=== PATIENT | male | born 1985 | race Two or more races ===

== ENCOUNTER 2022-08-31 10:40 | Inpatient (IN) | payer SELFPAY ==
--- NOTE | 2022-08-31 11:24 | RAD REPORT ---
EXAM DESCRIPTION: RAD - Chest Single View - 08/31/2022 11:18 am CLINICAL HISTORY: pre op COMPARISON: No comparisons FINDINGS: Lines: None. Lungs: No evidence of edema or pneumonia. Pleural: No significant pleural effusions or pneumothorax. Cardiac: The heart size is within normal limits. Mediastinum: Within normal limits. Bones: No acute fractures. Other: None IMPRESSION: No acute cardiopulmonary disease.
[2022-08-31] MEDS ORDERED: NA CHLORIDE 0.9% 100 ML ONE (11:32)
[2022-08-31] MEDS ORDERED: MORPHINE 4 MG/ML SYR ONE ×2 (11:32→13:35)
[2022-08-31] MEDS ORDERED: PIPERACIL/TAZO 3.375 GM VIAL IV ONE (11:32)
[2022-08-31] MEDS ORDERED: NA CHLORIDE 0.9% 1,000 ML ONE (11:32)
[2022-08-31 11:35] LABS: Absolute Lymphocytes (CBC) 1.4 K/uL (0.7-4.9); Hematocrit 36.8 % (39.6-49.0); Lymphocytes % 10.2 % (15.3-44.8); MCV 85.4 fL (80-100); MPV 7.2 fL (7.6-11.3); RBC Red Blood Cell Count 4.31 M/uL (4.33-5.43)
[2022-08-31 11:42] LABS: Protime INR 1.05
[2022-08-31 11:54] LABS: Albumin 3.4 g/dL (3.4-5.0); Bilirubin Total 0.3 mg/dL (0.2-1.0); Potassium 3.6 mEq/L (3.5-5.1); Protein, Total 7.9 g/dL (6.4-8.2)
[2022-08-31 12:33] LABS: Specific Gravity 1.015 (1.005-1.030); Urine Bacteria None Seen /HPF (<20); Urine Bilirubin NEGATIVE (Negative); Urine Blood Negative (Negative); Urine Clarity Clear (Clear); Urine Color Light-Yellow (Yellow); Urine Glucose 1+ (Negative); Urine Mucus Slight /HPF (None Seen); Urine Protein TRACE (Negative); Urine RBC <5 /HPF (None Seen); Urine Urobilinogen Normal (Normal)
--- NOTE | 2022-08-31 12:40 | RAD REPORT ---
EXAM DESCRIPTION: CTAbdomen Pelvis W Contrast - 08/31/2022 12:25 pm CLINICAL HISTORY: scrotal abscess COMPARISON: No comparisons TECHNIQUE: CT of the abdomen and pelvis was performed. All CT scans are performed using dose optimization technique as appropriate and may include automated exposure control or mA/KV adjustment according to patient size. FINDINGS: Lower chest: No acute abnormality. Liver: No acute abnormality or suspicious lesions. Biliary: No biliary ductal dilatation. Stomach: No significant focal abnormality. Duodenum: No significant focal abnormality. Pancreas: No significant abnormality. Spleen: No significant abnormality. Adrenal: No suspicious lesions. Kidney/ureter: No hydronephrosis. No renal calculi. Too small to characterize and/or benign appearing renal lesions are noted. Retroperitoneum: No retroperitoneal adenopathy. Vascular: No aneurysm. Bowel: Complex multiloculated perianal abscess identified measuring at least 5.3 x 2.9 cm. There is e xtensive inflammatory changes around the anus. The dominant fluid collection is present from about th e 11:00 to 3:00 position. No extension into the ischiorectal fossa. Normal appendix.. Peritoneum: No ascites or free air. Bladder: Grossly unremarkable. Reproductive: No adnexal masses. Bones: No acute fracture. Other: n/a IMPRESSION: Complex perianal fluid collection is presumably an abscess. Suggest surgical consultatio n. Due to the extent of inflammatory changes and soft tissue, MRI would be needed if better anatomic delineation needed.
--- NOTE | 2022-08-31 13:07 | EDPHYS ---
Physician Documentation [facility] Name: Wilder Celeste Age: 36 yrs Sex: Male : 1985 Arrival Date: 08/31/2022 Time: 10:40 Bed 13 Private MD: TANA Physician Brando Stephenson HPI: 08/31 11:41 This 36 yrs old Male presents to ER via Ambulatory with complaints of Abscess. snw 11:41 the patient presents with a swollen area of the marshall anal. Description: The affected snw area is small, poorly defined, swollen, exquisitely tender. Onset: The symptoms/episode began/occurred 1 week(s) ago, and became worse 2 day(s) ago, and became persistent. Associated signs and symptoms:. The patient has experienced a previous episode, 2019. The patient has not recently seen a physician. Historical: - Allergies: 10:57 No Known Allergies; ld1 - Home Meds: 10:57 None [Active]; ld1 - PMHx: 10:57 None; ld1 - PSHx: 10:57 None; ld1 - Immunization history:: Adult Immunizations up to date, Client reports receiving the 2nd dose of the Covid vaccine. - Social history:: Smoking status: Patient reports the use of cigarette tobacco products, smokes one-half pack cigarettes per day, Patient/guardian denies using alcohol. ROS: 11:41 Constitutional: Negative for fever, chills, and weight loss, Eyes: Negative for injury, snw pain, redness, and discharge, ENT: Negative for injury, pain, and discharge, Neck: Negative for injury, pain, and swelling, Cardiovascular: Negative for chest pain, palpitations, and edema, Respiratory: Negative for shortness of breath, cough, wheezing, and pleuritic chest pain, Abdomen/GI: Negative for abdominal pain, nausea, vomiting, diarrhea, and constipation, marshall anal pain and swelling Back: Negative for injury and pain, : Negative for injury, bleeding, discharge, and swelling, MS/Extremity: Negative for injury and deformity, Skin: Negative for injury, rash, and discoloration, Neuro: Negative for headache, weakness, numbness, tingling, and seizure, Psych: Negative for depression, anxiety, suicide ideation, homicidal ideation, and hallucinations. Exam: 11:40 Constitutional: This is a well developed, well nourished patient who is awake, alert, snw and in no acute distress. Head/Face: Normocephalic, atraumatic. Eyes: Pupils equal round and reactive to light, extra-ocular motions intact. Lids and lashes normal. Conjunctiva and sclera are non-icteric and not injected. Cornea within normal limits. Periorbital areas with no swelling, redness, or edema. ENT: Nares patent. No nasal discharge, no septal abnormalities noted. Tympanic membranes are normal and external auditory canals are clear. Oropharynx with no redness, swelling, or masses, exudates, or evidence of obstruction, uvula midline. Mucous membranes moist. Neck: Trachea midline, no thyromegaly or masses palpated, and no cervical lymphadenopathy. Supple, full range of motion without nuchal rigidity, or vertebral point tenderness. No Meningismus. Chest/axilla: Normal chest wall appearance and motion. Nontender with no deformity. No lesions are appreciated. Cardiovascular: Tachycardic rate and rhythm with a normal S1 and S2. No gallops, murmurs, or rubs. Normal PMI, no JVD. No pulse deficits. Respiratory: Lungs have equal breath sounds bilaterally, clear to auscultation and percussion. No rales, rhonchi or wheezes noted. No increased work of breathing, no retractions or nasal flaring. Abdomen/GI: Soft, non-tender, with normal bowel sounds. No distension or tympany. No guarding or rebound. No evidence of tenderness throughout. Severe right greater than left perirectal pain, pt unable to tolerate digital exam Back: No spinal tenderness. No costovertebral tenderness. Full range of motion. Male : Normal genitalia with no discharge or lesions. Skin: Warm, dry with normal turgor. Normal color with no rashes, no lesions, and no evidence of cellulitis. MS/ Extremity: Pulses equal, no cyanosis. Neurovascular intact. Full, normal range of motion. Neuro: Awake and alert, GCS 15, oriented to person, place, time, and situation. Cranial nerves II-XII grossly intact. Motor strength 5/5 in all extremities. Sensory grossly intact. Cerebellar exam normal. Normal gait. Vital Signs: 10:56 BP 117 / 70; Pulse 122; Resp 20; Temp 98.4(TE); Pulse Ox 99% on R/A; Weight 120.2 kg; ld1 Height 5 ft. 9 in. ; Pain 10/10; 13:20 BP 126 / 76; Pulse 88; Resp 18; Pulse Ox 97% on R/A; ph 10:56 Body Mass Index 39.13 (120.20 kg, 175.26 cm) ld1 10:56 Pain Scale: Adult ld1 MDM: 10:59 Patient medically screened. [email or web address] 11:55 Differential diagnosis: abscess, cellulitis. Data reviewed: vital signs, nurses notes. 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 11:57 Management of patient was discussed with the following: Hotel Housekeeper: Dr. Ibanez, will [facility] re-eval post CT. 13:36 Management of patient was discussed with the following: Hotel Housekeeper: Dr. Ibanez at [facility] bedside. Counseling: I had a detailed discussion with the patient and/or guardian regarding: the historical points, exam findings, and any diagnostic results supporting the discharge/admit diagnosis, lab results, radiology results. Response to treatment: the patient's symptoms have markedly improved after treatment. 08/31 11:01 Order name: Blood Culture Adult (2) 08/31 11:01 Order name: CBC with Diff; Complete Time: 11:45 w 08/31 11:01 Order name: CMP; Complete Time: 11:55 08/31 11:01 Order name: Lactate w/ 2H reflex if indic.; Complete Time: 12:51 08/31 11:01 Order name: Protime (+inr); Complete Time: 11:45 w 08/31 11:01 Order name: Ptt, Activated; Complete Time: 11:45 w 08/31 11:01 Order name: Urinalysis w/ reflexes; Complete Time: 12:35 w 08/31 11:01 Order name: Chest Single View XRAY; Complete Time: 11:25 08/31 11:01 Order name: CT Abd/Pelvis - IV Contrast Only; Complete Time: 12:51 w 08/31 11:01 Order name: EKG; Complete Time: 11:02 08/31 11:01 Order name: Accucheck; Complete Time: 12:26 w 08/31 11:01 Order name: Cardiac monitoring; Complete Time: 12:26 w 08/31 11:01 Order name: EKG - Nurse/Tech; Complete Time: 13:09 snw 08/31 11:01 Order name: IV Saline Lock - Large Bore; Complete Time: 12: snw 08/31 11:01 Order name: Labs collected and sent; Complete Time: 12: snw 08/31 11:01 Order name: O2 Per Protocol; Complete Time: 11:20 snw 08/31 11:01 Order name: O2 Sat Monitoring; Complete Time: 11: snw 08/31 11:01 Order name: Vital Signs; Complete Time: 11:20 snw EC:50 Rate is 88 beats/min. Rhythm is regular. QRS [place] is Normal. [place] interval is normal. QRS snw interval is normal. Clinical impression: NSR w/ Non-specific ST/T Changes. Administered Medications: 12:00 Drug: morphine IVP or IV 4 mg Route: IVP; Infused Over: 4 mins; Site: right antecubital;iw 13:48 Follow up: Response: No adverse reaction; Pain is decreased; RASS: Alert and Calm (0) ph 12:33 Drug: Piperacillin-Tazobactam IVPB 3.375 grams Route: IVPB; Infused Over: 60 mins; ph Site: right forearm; 13:05 Follow up: Response: No adverse reaction; IV Status: Completed infusion ph 12:36 Drug: NS 0.9% IV (30 ml/kg) 30 ml/kg Route: IV; Rate: bolus; Site: right forearm; ph 13:35 Drug: morphine IVP or IV 4 mg Route: IVP; Infused Over: 4 mins; Site: right forearm; ph 14:02 Follow up: Response: No adverse reaction; Pain is decreased; RASS: Alert and Calm (0) ph Disposition Summary: 08/31/22 13:06 Hospitalization Ordered Hospitalization Status: Inpatient Admission snw Provider: Berto Ibanez Location: Telemetry/MedSurg (Inpatient) snw Condition: Stable snw Problem: new snw Symptoms: are unchanged snw Bed/Room Type: Standard snw Room Assignment: snw Diagnosis - Cutaneous abscess of perineum - marshall anal snw Forms: - Medication Reconciliation Form snw - SBAR form snw Signatures: Dispatcher [employer] EDBrando Ramirez MD MD cha Waters, Shelly, PREHEMMER-C PREHEMMER-Csnw Theresa Mixon, ERICK SUAREZ iw Mel Simmons, ERICK RN ph Marija Gordillo RN RN ld1 Corrections: (The following items were deleted from the chart) 11:41 11:40 Constitutional: This is a well developed, well nourished patient who is awake, snw alert, and in no acute distress. Head/Face: Normocephalic, atraumatic. Eyes: Pupils equal round and reactive to light, extra-ocular motions intact. Lids and lashes normal. Conjunctiva and sclera are non-icteric and not injected. Cornea within normal limits. Periorbital areas with no swelling, redness, or edema. ENT: Nares patent. No nasal discharge, no septal abnormalities noted. Tympanic membranes are normal and external auditory canals are clear. Oropharynx with no redness, swelling, or masses, exudates, or evidence of obstruction, uvula midline. Mucous membranes moist. Neck: Trachea midline, no thyromegaly or masses palpated, and no cervical lymphadenopathy. Supple, full range of motion without nuchal rigidity, or vertebral point tenderness. No Meningismus. Chest/axilla: Normal chest wall appearance and motion. Nontender with no deformity. No lesions are appreciated. Cardiovascular: Regular rate and rhythm with a normal S1 and S2. No gallops, murmurs, or rubs. Normal PMI, no JVD. No pulse deficits. Respiratory: Lungs have equal breath sounds bilaterally, clear to auscultation and percussion. No rales, rhonchi or wheezes noted. No increased work of breathing, no retractions or nasal flaring. Abdomen/GI: Soft, non-tender, with normal bowel sounds. No distension or tympany. No guarding or rebound. No evidence of tenderness throughout. Severe right greater than left perirectal pain, pt unable to tolerate digital exam Back: No spinal tenderness. No costovertebral tenderness. Full range of motion. Male : Normal genitalia with no discharge or lesions. Skin: Warm, dry with normal turgor. Normal color with no rashes, no lesions, and no evidence of cellulitis. MS/ Extremity: Pulses equal, no cyanosis. Neurovascular intact. Full, normal range of motion. Neuro: Awake and alert, GCS 15, oriented to person, place, time, and situation. Cranial nerves II-XII grossly intact. Motor strength 5/5 in all extremities. Sensory grossly intact. Cerebellar exam normal. Normal gait. snw
--- NOTE | 2022-08-31 13:07 | ER ---
Nurse's Notes [facility] Name: Wilder Celeste Age: 36 yrs Sex: Male : 1985 Arrival Date: 08/31/2022 Time: 10:40 Bed 13 Private MD: Diagnosis: Cutaneous abscess of perineum-marshall anal Presentation: 08/31 10:56 Chief complaint: Patient states: Abscess to scrotum X 1 week. Pt reports having surgery ld1 on this same area in 2019 for abscess. Coronavirus screen: At this time, the client does not indicate any symptoms associated with coronavirus-19. Ebola Screen: No symptoms or risks identified at this time. Initial Sepsis Screen: Does the patient meet any 2 criteria? No. Patient's initial sepsis screen is negative. Does the patient have a suspected source of infection? No. Patient's initial sepsis screen is negative. Risk Assessment: Do you want to hurt yourself or someone else? Patient reports no desire to harm self or others. Onset of symptoms was August 31, 2022 at 10:57. 10:56 Method Of Arrival: Ambulatory ld1 10:56 Acuity: RAGHAV 3 ld1 Triage Assessment: 10:57 General: Appears in no apparent distress. uncomfortable, Behavior is cooperative, ld1 anxious. Pain: Complains of pain in perineum Pain does not radiate. Pain currently is 10 out of 10 on a pain scale. Quality of pain is described as throbbing. EENT: No signs and/or symptoms were reported regarding the EENT system. Neuro: Level of Consciousness is awake, alert, obeys commands, Oriented to person, place, time, situation. Cardiovascular: Capillary refill < 3 seconds Patient's skin is warm and dry. Rhythm is sinus tachycardia. Respiratory: Airway is patent Respiratory effort is even, unlabored. GI: Abdomen is round non-distended. : No signs and/or symptoms were reported regarding the genitourinary system. Derm: No signs and/or symptoms reported regarding the dermatologic system. Musculoskeletal: No signs and/or symptoms reported regarding the musculoskeletal system. Historical: - Allergies: 10:57 No Known Allergies; ld1 - Home Meds: 10:57 None [Active]; ld1 - PMHx: 10:57 None; ld1 - PSHx: 10:57 None; ld1 - Immunization history:: Adult Immunizations up to date, Client reports receiving the 2nd dose of the Covid vaccine. - Social history:: Smoking status: Patient reports the use of cigarette tobacco products, smokes one-half pack cigarettes per day, Patient/guardian denies using alcohol. Screenin:19 [facility] ED Fall Risk Assessment (Adult) History of falling in the last 3 months, ph including since admission No falls in past 3 months (0 pts) Confusion or Disorientation No (0 pts) Intoxicated or Sedated No (0 pts) Impaired Gait No (0 pts) Mobility Assist Device Used No (0 pt) Altered Elimination No (0 pt) Score/Fall Risk Level 0 - 2 = Low Risk Oriented to surroundings, Maintained a safe environment, Hourly rounding (assess needs \T\ fall precautionary measures) done. Abuse screen: Denies threats or abuse. Denies injuries from another. Nutritional screening: No deficits noted. Tuberculosis screening: No symptoms or risk factors identified. Assessment: 11:45 General: Appears in no apparent distress. uncomfortable, Behavior is calm, cooperative, ph appropriate for age, Reports chills for >3 days, fever for. Pain: Complains of pain in perineum and groin. Neuro: Level of Consciousness is awake, alert, obeys commands, Oriented to person, place, time, situation. Cardiovascular: Capillary refill < 3 seconds in bilateral fingers Patient's skin is warm and dry. Respiratory: Airway is patent Respiratory effort is even, unlabored. Derm: Skin is pink, warm \T\ dry. Musculoskeletal: Circulation, motion, and sensation intact. Range of motion: intact in all extremities. 12:26 Reassessment: pt in CT. ph 12:36 Reassessment: Patient appears in no apparent distress at this time. Patient and/or iw family updated on plan of care and expected duration. Pain level reassessed. Patient is alert, oriented x 3, equal unlabored respirations, skin warm/dry/pink. pt placed on hospital bed , blanket and pillow given. 13:21 Reassessment: Patient appears in no apparent distress at this time. Patient and/or ph family updated on plan of care and expected duration. Pain level reassessed. Patient is alert, oriented x 3, equal unlabored respirations, skin warm/dry/pink. Pt states that pain was temporarily relieved by IV morphine has returned, 8/10. 14:00 Reassessment: Patient appears in no apparent distress at this time. Patient and/or ph family updated on plan of care and expected duration. Pain level reassessed. Patient is alert, oriented x 3, equal unlabored respirations, skin warm/dry/pink. Pt taken to OR. Vital Signs: 10:56 BP 117 / 70; Pulse 122; Resp 20; Temp 98.4(TE); Pulse Ox 99% on R/A; Weight 120.2 kg; ld1 Height 5 ft. 9 in. ; Pain 10; 13:20 BP 126 / 76; Pulse 88; Resp 18; Pulse Ox 97% on R/A; ph 10:56 Body Mass Index 39.13 (120.20 kg, 175.26 cm) ld1 10:56 Pain Scale: Adult ld1 ED Course: 10:42 Patient arrived in ED. mr 10:43 [facility]ann[facility]ckin[facility]C [facility] snw 10:43 Brando Stephenson MD is Attending Physician. snw 10:57 Triage completed. ld1 10:57 Arm band placed on right wrist. ld1 11:07 Mel Simmons, RN is Primary Nurse. ph 11:20 Chest Single View XRAY In Process Unspecified. EDMS 11:20 Patient has correct armband on for positive identification. Bed in low position. Call ph light in reach. Side rails up X 1. Pulse ox on. NIBP on. Door closed. Noise minimized. 11:31 Inserted saline lock: 20 gauge in right forearm, using aseptic technique. Blood rs5 collected. 11:32 CBC with Diff Sent. rs5 11:32 CMP Sent. rs5 11:32 Protime (+inr) Sent. rs5 11:32 Ptt, Activated Sent. rs5 12:10 Second set of blood cultures drawn. mm9 12:27 CT Abd/Pelvis - IV Contrast Only In Process Unspecified. EDMS 12:34 Blood Culture Adult (2) Sent. mm9 12:35 Lactate w/ 2H reflex if indic. Sent. mm9 13:05 Berto Ibanez MD is Hospitalizing Provider. snw 13:09 EKG done, by ED staff, reviewed by Shannan ARMANDO. mm9 13:10 Placed in gown. Adult w/ patient. mm9 14:00 No provider procedures requiring assistance completed. Patient admitted, IV remains in ph place. Administered Medications: 12:00 Drug: morphine IVP or IV 4 mg Route: IVP; Infused Over: 4 mins; Site: right antecubital;iw 13:48 Follow up: Response: No adverse reaction; Pain is decreased; RASS: Alert and Calm (0) ph 12:33 Drug: Piperacillin-Tazobactam IVPB 3.375 grams Route: IVPB; Infused Over: 60 mins; ph Site: right forearm; 13:05 Follow up: Response: No adverse reaction; IV Status: Completed infusion ph 12:36 Drug: NS 0.9% IV (30 ml/kg) 30 ml/kg Route: IV; Rate: bolus; Site: right forearm; ph 13:35 Drug: morphine IVP or IV 4 mg Route: IVP; Infused Over: 4 mins; Site: right forearm; ph 14:02 Follow up: Response: No adverse reaction; Pain is decreased; RASS: Alert and Calm (0) ph Medication: 11:20 VIS not applicable for this client. ph Outcome: 13:06 Decision to Hospitalize by Provider. snw 14:00 Admitted to OR accompanied by nurse, family with patient, via stretcher, with chart. ph 14:00 Condition: good 14:00 Instructed on the need for admit. 14:02 Patient left the ED. ph Signatures: Dispatcher [employer] EDMS Shannan Mckinney, DOMINIQUE-C CLINICAL DATA MANAGEMENT DIRECTOR-Csnw Anayeli Calle Irene, RN RN iw Mel Simmons RN RN Marija Gordillo RN RN ld1 Martinez, Maria mm9 Sotello, Ricky rs5 Corrections: (The following items were deleted from the chart) 13:19 13:18 NS 0.9% IV (30 ml/kg) 30 ml/kg IV at bolus in right antecubital ph ph 13:49 12:36 NS 0.9% IV (30 ml/kg) 30 ml/kg IV at bolus in right forearm iw ph
[2022-08-31] MEDS ORDERED: Ringers Lactate 1,000 ML IV ONE (14:01)
[2022-08-31] MEDS ORDERED: FENTANYL CITR 100 MCG/2 ML ONE (14:42)
[2022-08-31] MEDS ORDERED: MIDAZOLAM HCL 2 MG/2 ML INJ ONE (14:42)
[2022-08-31] MEDS ORDERED: propofoL 200 MG/20 ML VIAL IV ONE (14:42)
[2022-08-31] MEDS ORDERED: KETOROLAC 30 MG/ML INJ ONE (14:43)
[2022-08-31] MEDS ORDERED: LIDOCAINE 2% MPF 5 ML VIAL ONE (14:43)
[2022-08-31] MEDS ORDERED: ONDANSETRON 4 MG/2 ML VIAL ONE (14:43)
[2022-08-31] MEDS ORDERED: BUPIVACAINE 0.5% PF 10 ML VIAL ONE (14:51)
[2022-08-31] MEDS ORDERED: MORPHINE 10 MG/ML VIAL ONE (15:23)
--- NOTE | 2022-08-31 15:32 | P.BOP ---
Preoperative diagnosis: Perianal cellultis, complex abscess Postoperative diagnosis: same Primary procedure: EUA, ANoscopy, rigid proctoscopy, I&D of complex perianal abscess Secondary procedure: 6x4cm Estimated blood loss: <10cc Specimen: pus Findings: abscess 11-3 oclock Anesthesia: General Complications: None Implants: nugauze /" Transferred to: Recovery Room Condition: Good
[2022-08-31] MEDS ORDERED: ONDANSETRON 4 MG/2 ML VIAL IV PRN (15:33)
[2022-08-31] MEDS ORDERED: HYDROCODONE/APAP 5/325 MG TAB PO PRN (15:33)
[2022-08-31] MEDS ORDERED: HYDROMORPHONE HCL 1 MG/ML INJ IV PRN (15:33)
[2022-08-31] MEDS ORDERED: SODIUM CHLORIDE 0.9% 10ML INJ IV PRN (15:33)
[2022-08-31 16:08] VITALS: O2SAT 92
[2022-08-31] MEDS: NA CHLORIDE 0.9% 1,000 ML IV SCH (16:22)
[2022-08-31 16:47] VITALS: BMI 39.9
--- NOTE | 2022-08-31 17:19 | OP ---
Date of Procedure: 08/31/2022 Surgeon: Berto Ibanez MD Preoperative Diagnoses: Perianal pain, perianal cellulitis, complex perianal abscess. Postoperative Diagnoses: Perianal pain, perianal cellulitis, complex perianal abscess. Procedures: Examination under anesthesia, anoscopy, rigid proctoscopy, incision and drainage of comp ry perianal abscess about 6 x 4 cm. Complications: None. Finding: Abscess from 11 to 3 o'clock. Multiple loculations opened. Purulent discharge cultured. Anesthesia: General plus local. Estimated Blood Loss: Less than 10 cc. Indication: Patient comes to us with perianal tenderness. Fully explained the benefits, alternative s, and risks of EUA, anoscopy, rigid proctoscopy, incision and drainage of perianal abscess with bene fits, alternatives, and risks including, but not limited to, infection, bleeding, damage to adjacent structures, anesthesia complication, recurrence, IL, and even . He also understands this may no t relieve any symptoms. He might need more than one surgical intervention. He understood, signed a consent. Description Of Procedure: Patient was brought to the operating room, placed in supine position. Ane sthesia was done without complication. Patient placed in lithotomy position with proper protection. Perianal area was prepped and draped in a sterile fashion. A time-out was called. After that, rect al examination was done followed by rigid proctoscopy all to about only 8 cm, we cannot advance anymo re. It is full of stools. We did not see any masses up to that area. We see internal and external hemorrhoids. Then, after that, we put an anoscope with a window on the side. This helped me visuali ze the anal canal. There is an anterior about from 11 o'clock to 3 o'clock area of induration. We m shivam a counter incision on that region and large pus was obtained. We put a finger into, brought the loculations, and then after that, we irrigated the area, obtained hemostasis. We already cultured th at area, obtained hemostasis and then packed the area with a quarter of an inch Nu Gauze. The patien t tolerated the procedure well. Patient sent to recovery in stable condition. Sponge count and inst rument counts were correct. MILLIE/JONATHAN Voice ID: [id number] Report ID: [id number]
[2022-08-31] MEDS: METRONIDAZOLE 500mg IVPB 500 MG/100 ML BAG IV SCH (17:32)
--- NOTE | 2022-08-31 18:01 | HP ---
Date of Admission: 08/31/2022 Diagnosis: Perianal abscess. History Of Present Illness: This is the case of a 36-year-old patient, who comes to us with perianal tenderness. Had a workup done at the ER, even a CAT scan showing perianal abscess. He is not new t o this. He says that about 4 years ago he had the same event. He has a perianal abscess. He was ou t of town and had an I and D in that area, but no followup. This pain started about a week ago and t hen got worse about 2 days later to the point that right now it is difficult to sit. No history of i nflammatory bowel disease that he can remember. Review of Systems: No shortness of breath. No chest pain. The patient has a perianal tenderness. No dysuria, hematuri a, hematochezia, or melena. No recent traveling out of the country. No trauma in that region. No h istory of Crohn disease or inflammatory bowel disease. Allergies: NONE. Medications: None. Past Medical History: None. Surgeries: As above. Social History: He does not drink alcohol. He smokes half a pack a day. He was counseled about smo coby cessation. Physical Examination: General: Patient is awake and alert. HEENT: Pupils are equal and reactive. Anicteric. Neck: Supple. Chest: Clear. Heart: S1, S2. Abdomen: Soft and depressible. No guarding or rebound. No peritoneal signs. Extremities: Good capillary refill. Good peripheral pulses x4. Genitalia: No tenderness. The perianal region, patient has a perianal abscess. No bleeding at this moment. The bulging, tenderness, erythema, and fluctuance present. Physical exam is limited due to tenderness. NEURO: Cranial nerves 2 through 12 are grossly within normal limits. Laboratory Data: Blood work shows WBC count of 13.9 with hemoglobin of 12.4, INR of 1.05, chloride 1 06, potassium 3.6. CAT scan of the abdomen and pelvis interpreted by Dr. Beverly as complex perianal flu id collection suggest surgical consultation. The size of this is about 5.3 to 2.9 cm from 11 to 3 o' clock position. Assessment: This is a 36-year-old patient with perianal tenderness, fluid collection, perianal absce ss. The benefits, alternatives, and risks of EUA, anoscopy, proctoscopy, and the perianal abscess fu lly explained, which include, but not limited to, infection, bleeding, damage to adjacent structures, anesthesia complication, nonhealing wound, anal stricture, anal incontinence, WA, and even . Jamin medina also understands this may not relieve the symptoms. He might need dressing changes. He was advise d also after this infection goes better to visit his colorectal surgeon for workup for possible fistu la and abscess. MILLIE/JONATHAN Voice ID: [id number]
[2022-08-31] MEDS: CIPROFLOXACIN 400mg IV 400 MG/200 ML BAG IV SCH (20:36)
[2022-09-01] MEDS: METRONIDAZOLE 500mg IVPB 500 MG/100 ML BAG IV SCH ×2 (00:48→06:43)
[2022-09-01] MEDS: NA CHLORIDE 0.9% 1,000 ML IV SCH (06:43)
[2022-09-01] MEDS ORDERED: PANTOPRAZOLE 40 MG INJ IVP SCH (09:00)
[2022-09-01] MEDS: CIPROFLOXACIN 400mg IV 400 MG/200 ML BAG IV SCH (09:38)
--- NOTE | 2022-09-01 11:40 | P.DS ---
Admission Date: 08/31/22 Discharge Date: 09/01/22 Disposition: ROUTINE DISCHARGE Discharge Condition: GOOD - Problems (1) Perianal abscess Current Visit: Yes Status: Acute (2) Perianal cellulitis Current Visit: Yes Status: Acute (3) Perianal cellulitis Current Visit: Yes Status: Acute Brief History of Present Illness: see hpi Hospital Course: unremarkable Vital Signs/Physical Exam: Temp Pulse Resp BP Pulse Ox 96.9 F 81 18 122/62 94 09/01/22 08:00 09/01/22 08:00 09/01/22 08:00 09/01/22 08:00 09/01/22 08:00 General: Alert, In no apparent distress, Oriented x3 Respiratory: Normal air movement Cardiovascular: No edema Gastrointestinal: Soft and benign Integumentary: No rashes, No breakdown Rectal: Other (packing changed this am, ) Laboratory Data at Discharge: WBC 13.90 thou/uL (4.3-10.9) H 08/31/22 11:25 Hgb 12.4 g/dL (13.6-17.9) L 08/31/22 11:25 Hct 36.8 % (39.6-49.0) L 08/31/22 11:25 Plt Count 308 thou/uL (152-406) 08/31/22 11:25 PT 11.6 SECONDS (9.5-12.5) 08/31/22 11:25 INR 1.05 08/31/22 11:25 APTT 38.1 SECONDS (24.3-36.9) H 08/31/22 11:25 Sodium 136 mEq/L (136-145) 08/31/22 11:25 Potassium 3.6 mEq/L (3.5-5.1) 08/31/22 11:25 BUN 10 mg/dL (7-18) 08/31/22 11:25 Creatinine 0.95 mg/dL (0.70-1.30) 08/31/22 11:25 Glucose 219 mg/dL (74-106) H 08/31/22 11:25 Total Bilirubin 0.3 mg/dL (0.2-1.0) 08/31/22 11:25 AST 83 U/L (15-37) H 08/31/22 11:25 ALT 195 U/L (16-61) H 08/31/22 11:25 Alkaline Phosphatase 140 U/L (45-117) H 08/31/22 11:25 Home Medications: NK [No Home Meds] 08/31/22 Physician Discharge Instructions: f/u with his primary doctor as an outpatient for glucose check, Pt advised. remove outer packing in AM and dont repack . Just place a gauze over incision site Take abx prescribed Avoid constipation Sitz bath tid and after every bowel movment. Diet: ADA Activity: No lifting more than 10 lbs Followup: Marin Epstein MD [Primary Care Provider] - If your Symptoms Worsen Berto Ibanez MD [ACTIVE - CAN ADMIT] - 1 Week
[2022-09-01 12:22] VITALS: BP 117/72; TEMP 97.9
--- NOTE | 2022-09-03 17:56 | EKG ---
Test Date: 2022-08-31 Test Time: 12:50:12 Emotionally Impaired Teacher: KIMBERLY MEASUREMENT RESULTS: Intervals: Rate: 88 NV: 144 QRSD: 108 QT: 350 QTc: 423 Dime Box: P: 64 NV: 144 QRS: -10 T: 31 INTERPRETIVE STATEMENTS: Normal sinus rhythm Normal ECG No previous ECG available for comparison Electronically Signed On 09-03-22 17:51:[address]o
== END 2022-09-01 12:34 | disposition home or self-care (01) | DRG 395 ==
LOC: ER 10:40 → ERHOLD 14:02 → 4TH 15:45
PROVIDERS: ADMIT Surgery; ATTEND Surgery
PROC: 0DJD8ZZ Inspection of Lower Intestinal Tract, Via Natural or Artificial Opening Endoscopic (ICD-10-PCS; 2022-08-31)
PROC: 0D9Q0ZX Drainage of Anus, Open Approach, Diagnostic (ICD-10-PCS; principal; 2022-08-31 14:00)
DX: K61.0 Anal abscess (principal); F17.210 Nicotine dependence, cigarettes, uncomplicated; Z71.6 Tobacco abuse counseling
CPT/HCPCS: 36415; 71045; 74177; 80053; 81001; 82947; 83605; 85025; 85610; 85730; 87040; 87070; 87075; 87205; 93005; 94010; 99285; C9113; J0744; J1170; J2001; J2250; J2405; J2543; J2704; J3010; J7030; J7120; Q9967